=== PATIENT | male | born 1980 | race Caucasian/White ===

== ENCOUNTER 2022-11-10 14:51 | Emergency (ER) | payer MEDICARE, OTHER ==
[2022-11-10 14:56] VITALS: RESP 16
--- NOTE | 2022-11-10 16:04 | ED ---
Psych HPI - General Source: patient, RN notes reviewed Mode of arrival: ambulatory Limitations: no limitations <Chidi Conner - Last Filed: 11/11/22 06:02> <Donovan Carrero - Last Filed: 11/11/22 18:17> - General Chief Complaint: Psychiatric Symptoms Stated Complaint: EPS eval Time Seen by Provider: 11/10/22 15:06 - History of Present Illness Initial Comments: 42-year-old male presents emergency Department with family for psychiatric evaluation. They are concerned that he may have a schizophrenic because of family history. Patient reportedly has been going on lying in getting scanned, patient has been lonely, making irrational thoughts. Patient does have a history of brain tumors is closely followed at [facility]. Patient denies any suicidal or homicidal denies any physical complaints. (Chidi Conner) - Related Data Home Medications Medication Instructions Recorded Confirmed Acetaminophen-Codeine 300-30mg 2 tab PO Q6H PRN 07/28/14 07/28/14 [Tylenol w/codeine #3] Amoxicillin/Potassium Clav 1 each PO Q12HR 07/28/14 07/28/14 [Augmentin 875-125 Tablet] Levothyroxine Sodium [Synthroid] 100 mcg PO DAILY 07/28/14 07/28/14 Phenytoin Chew [Dilantin Chew] 150 mg PO TID 07/28/14 07/28/14 Ra Col-Rite 100 mg PO BID 07/28/14 07/28/14 Allergies Allergy/AdvReac Type Severity Reaction Status Date / Time No Known Allergies Allergy Verified 07/28/14 10:40 Review of Systems ROS Other: All systems not noted in ROS Statement are negative. <Chidi Conner - Last Filed: 11/11/22 06:02> ROS Other: All systems not noted in ROS Statement are negative. <Donovan Carrero - Last Filed: 11/11/22 18:17> ROS Statement: Those systems with pertinent positive or pertinent negative responses have been documented in the HPI. Past Medical History Past Medical History: Seizure Disorder Additional Past Medical History / Comment(s): BRAIN TUMOR History of Any Multi-Drug Resistant Organisms: Unobtainable Additional Past Surgical History / Comment(s): TUMOR REMOVED FROM LT OPTIC NERVE Past Psychological History: Unable to Obtain Past Alcohol Use History: Unable to Obtain Past Drug Use History: Unable to Obtain <UbaldoChidi - Last Filed: 11/11/22 06:02> General Exam Limitations: no limitations General appearance: alert, in no apparent distress Head exam: Present: atraumatic, normocephalic. Absent: normal inspection (Old surgical scars noted) Eye exam: Present: normal appearance, PERRL, EOMI. Absent: scleral icterus, conjunctival injection, periorbital swelling Neck exam: Present: normal inspection, full ROM. Absent: tenderness, meningismus, lymphadenopathy Respiratory exam: Present: normal lung sounds bilaterally. Absent: respiratory distress, wheezes, rales, rhonchi, stridor Cardiovascular Exam: Present: regular rate, normal rhythm, normal heart sounds. Absent: systolic murmur, diastolic murmur, rubs, gallop, clicks Neurological exam: Present: alert Psychiatric exam: Present: flat affect <UbaldoChidi Ian - Last Filed: 11/11/22 06:02> Course <Donovan Carrero - Last Filed: 11/11/22 18:17> Vital Signs 11/10/22 11/10/22 14:52 21:01 Temperature 97.6 F 98.6 F Pulse Rate 89 82 Respiratory 16 16 Rate Blood Pressure 150/87 139/93 O2 Sat by Pulse 100 96 Oximetry - Reevaluation(s) Reevaluation #1: Medical record reviewed Medical clear for psychiatric evaluation (Donovan Carrero) Medical Decision Making <UbaldoChidi Ian - Last Filed: 11/11/22 06:02> <Donovan Carrero - Last Filed: 11/11/22 18:17> - Medical Decision Making 4Was pt. sent in by a medical professional or institution (, PA, HOUSE CLEANER, urgent care, hospital, or longterm...) When possible be specific @ -No Did you speak to anyone other than the patient for history (EMS, parent, family, police, friend...)? What history was obtained from this source @ -Family providing significant past medical history Did you review nursing and triage notes (agree or disagree)? Why? @ -I reviewed and agree with nursing and triage notes Were old charts reviewed (outside hosp., previous admission, EMS record, old EKG, old radiological studies, urgent care reports/EKG's, longterm records)? Report findings @ -No old charts were reviewed Differential Diagnosis (chest pain, altered mental status, abdominal pain women, abdominal pain men, vaginal bleeding, weakness, fever, dyspnea, syncope, headache, dizziness, GI bleed, back pain, seizure, CVA, palpatations, mental health, musculoskeletal)? @ -Adjustment reaction, PTSD, depression, anxiety, schizophrenia, bipolar disorder EKG interpreted by me (3pts min.). @ -None X-rays interpreted by me (1pt min.). @ -None done CT interpreted by me (1pt min.). @ -None done U/S interpreted by me (1pt. min.). @ -None done What testing was considered but not performed or refused? (CT, X-rays, U/S, labs)? Why? @ -None What meds were considered but not given or refused? Why? @ -None Did you discuss the management of the patient with other professionals (professionals i.e. , PA, HOUSE CLEANER, lab, RT, psych nurse, mental health social worker, seismograph computer, teacher, fire management officer, outpatient case manager)? Give summary @ -Psychiatric services who evaluated the patient and recommended patient be discharged Was smoking cessation discussed for >3mins.? @ -No Was critical care preformed (if so, how long)? @ -No Were there social determinants of health that impacted care today? How? (Homelessness, low income, unemployed, alcoholism, drug addiction, transportation, low edu. Level, literacy, decrease access to med. care, shelter, rehab)? @ -No Was there de-escalation of care discussed even if they declined (Discuss DNR or withdrawal of care, Hospice)? DNR status @ -No What co-morbidities impacted this encounter? (DM, HTN, Smoking, COPD, CAD, Cancer, CVA, ARF, Chemo, Hep., AIDS, mental health diagnosis, sleep apnea, morbid obesity)? @ -None Was patient admitted / discharged? Hospital course, mention meds given and route, prescriptions, significant lab abnormalities, going to OR and other pertinent info. @ -Discharge patient was evaluated by EPS. The patient does not need inpatient treatment patient discharged with information return parameters were discussed. Undiagnosed new problem with uncertain prognosis? @ -No Drug Therapy requiring intensive monitoring for toxicity (Heparin, Nitro, Insulin, Cardizem)? @ -No Were any procedures done? @ -No Diagnosis/symptom? @ -Adjustment reaction Acute, or Chronic, or Acute on Chronic? @ -Acute Uncomplicated (without systemic symptoms) or Complicated (systemic symptoms)? @ -Uncomplicated Side effects of treatment? @ -No Exacerbation, Progression, or Severe Exacerbation? @ -No Poses a threat to life or bodily function? How? (Chest pain, [place], [place], pneumonia, PE, COPD, DKA, ARF, appy, cholecystitis, CVA, Diverticulitis, Homicidal, Suicidal, threat to staff... and all critical care pts) @ -No (Chidi Conner) 42 male seen evaluation psychiatry here in the emergency department. Patient can be discharged home (Donovan Carrero) - Lab Data Lab Results 11/10/22 Range/Units 19:18 Coronavirus (PCR) Not Detected (Not Detectd) Disposition <Chidi Conner - Last Filed: 11/11/22 06:02> Is patient prescribed a controlled substance at d/c from ED?: No <Donovan Carrero - Last Filed: 11/11/22 18:17> Clinical Impression: Depression, Adjustment reaction of adult life Disposition: HOME SELF-CARE Condition: Fair Referrals: Donovan Burnette DO [Primary Care Provider] - 1-2 days
[2022-11-10 21:02] VITALS: BP 139/93; PULSE 82; TEMP 98.6
== END 2022-11-10 21:04 | disposition home or self-care (01) ==
LOC: EC 14:51
DX: F43.20 Adjustment disorder, unspecified (principal); F32.A Depression, unspecified; Z20.822 Contact with and (suspected) exposure to COVID-19
CPT/HCPCS: 82075; 87635; 99284